=== PATIENT | female | born 1995 | race Two or more races ===

== ENCOUNTER 2021-02-20 22:15 | Inpatient (IN) | payer OTHER, MEDICAID ==
[~2021-02-20] VITALS: Ht 149.9 cm; Wt 64.0 kg
[2021-02-20] MEDS ORDERED: PNV1TABL76 PO (22:43)
[2021-02-20] MEDS ORDERED: DEXT 5%/LR + PITOCIN 20UNITS/L 1,000 ML IV SCH (23:30)
[2021-02-20] MEDS ORDERED: BUTORPHANOL TARTRATE 2 MG/ML VIAL IV PRN (23:30)
[2021-02-20] MEDS ORDERED: LIDOCAINE HCL 1% 20ML VIAL (Pyxis) INJ INFIL SCH (23:30)
[2021-02-20] MEDS ORDERED: NALOXONE HCL 0.4 MG/ML 1ML VIAL IM PRN (23:30)
[2021-02-20] MEDS ORDERED: METHYLERGONOVINE MALEATE 0.2 MG/ML IM PRN (23:30)
[2021-02-21] MEDS ORDERED: AMPICILLIN 2GM in NS 100ML 100 ML IV SCH
[2021-02-21 00:28] LABS: CLARITY URINE TURBID (CLEAR); COLOR URINE YELLOW (YELLOW); KETONES URINE TRACE (NEGATIVE); LEUKOCYTE ESTERASE URINE 3+ (NEGATIVE); NITRITE URINE POSITIVE (NEGATIVE); OCCULT BLOOD URINE 2+ (NEGATIVE); PH URINE 5.5 (4.5-8.0); PROTEIN URINE 1+ (NEGATIVE); SPECIFIC GRAVITY URINE 1.017 (1.005-1.030)
[2021-02-21 00:28] LABS: BASOPHILS % 0.7 % (0.0-2.0); EOSINOPHILS % 0.4 % (0.0-5.0); HEMATOCRIT. 35.9 % (36.0-48.0); HEMOGLOBIN. 12.5 g/dL (12.0-16.0); LYMPHOCYTES % 42.4 % (20.0-50.0); MEAN CORPUSCULAR HEMOGLOBIN 28.6 pg (28.0-32.0); MEAN CORPUSCULAR VOLUME 82.2 fL (81.0-99.0); MEAN PLATELET VOLUME 10.6 fl (7.4-10.4); MONOCYTES % 2.8 % (2.0-8.0); NEUTROPHILS % 53.7 % (40.0-76.0); PLATELET 202 x1000/uL (130-400); RED BLOOD CELL COUNT 4.37 mill/uL (4.2-5.4); RED CELL DISTRIBUTION WIDTH 12.8 % (11.6-14.6)
[2021-02-21 00:33] LABS: PARTIAL THROMBOPLASTIN TIME 32.2 sec (23.4-31.0); PROTHROMBIN TIME 10.3 sec (9.6-11.0)
[2021-02-21 00:38] LABS: *BARBITURATES SCREEN URINE NEGATIVE (NEGATIVE)
[2021-02-21 00:39] LABS: *AMPHETAMINES SCREEN URINE NEGATIVE (NEGATIVE); *BENZODIAZEPINES SCREEN URINE NEGATIVE (NEGATIVE); *COCAINE SCREEN URINE NEGATIVE (NEGATIVE); CANNABINOID URINE SCREEN NEGATIVE (NEGATIVE); METHADONE URINE SCREEN NEGATIVE (NEGATIVE); OPIATES URINE SCREEN NEGATIVE (NEGATIVE); PHENCYCLIDINE URINE SCREEN NEGATIVE (NEGATIVE)
[2021-02-21 00:50] LABS: CHLORIDE 103 mEq/L (98-107)
[2021-02-21 01:35] LABS: HEPATITIS B SURFACE ANTIGEN NEGATIVE
[2021-02-21] MEDS ORDERED: ROPIVACAINE HCL/PF EPIDURAL 200 ML EPI ONE (02:12)
[2021-02-21] MEDS ORDERED: FENTANYL CITRATE/PF 50MCG/ML 2ML VIAL ONE (02:12)
[2021-02-21] MEDS ORDERED: BUPIVACAINE HCL/PF 0.25% (2.5MG/ML) 10ML ONE (02:14)
[2021-02-21] MEDS: LACTATED RINGERS 1,000 ML IV SCH ×2 (03:18)
[2021-02-21] MEDS ORDERED: AMPICILLIN 1,000 MG in SODIUM CHLORIDE 0.9% 50 ML IV SCH (06:00)
[2021-02-21] MEDS ORDERED: DEXT 5%/LR + PITOCIN 20UNITS/L 1,000 ML IV SCH (07:15)
[2021-02-21] MEDS ORDERED: BENZOCAINE/LANOLIN/ALOE VERA SPRAY TOP PRN (07:15)
[2021-02-21] MEDS ORDERED: RHO(D) IMMUNE GLOBULIN 300 MCG/SYR IM PRN (07:15)
[2021-02-21] MEDS ORDERED: IBUPROFEN 400MG TABLET PO PRN (07:15)
[2021-02-21] MEDS ORDERED: IBUPROFEN 800MG TABLET PO PRN (07:15)
[2021-02-21 09:20] VITALS: BP 130/80
[2021-02-21 13:00] VITALS: BP 117/74
[2021-02-21] MEDS: PRENATAL VIT/FE FUMARATE/FA TABLET PO SCH (14:04)
[2021-02-21 16:45] VITALS: BP 115/79
[2021-02-21 19:30] VITALS: BP 115/85
[2021-02-22] MEDS ORDERED: TETANUS, DIPHTHERIA, PERTUSSIS VAC/PF 0.5ML (>7YR OLD) IM ONE (01:00)
[2021-02-22 04:00] VITALS: BP 94/61
[2021-02-22 07:30] VITALS: BP 106/64
[2021-02-22] MEDS ORDERED: FERROUS SULFATE 325MG TABLET PO SCH (07:30)
[2021-02-22] MEDS ORDERED: IBUP-2030 PO (07:44)
[2021-02-22] MEDS: PRENATAL VIT/FE FUMARATE/FA TABLET PO SCH (07:54)
[2021-02-22 13:07] LABS: HEMATOCRIT. 30.7 % (36.0-48.0); HEMOGLOBIN. 10.5 g/dL (12.0-16.0); MEAN CORPUSCULAR HEMOGLOBIN 28.3 pg (28.0-32.0); MEAN PLATELET VOLUME 9.6 fl (7.4-10.4); PLATELET 182 x1000/uL (130-400); RED CELL DISTRIBUTION WIDTH 13.2 % (11.6-14.6)
[2021-02-22 14:33] LABS: PLATELET ESTIMATE NORMAL
== END 2021-02-22 16:35 | disposition home or self-care (01) | DRG 560 ==
LOC: OBSVTOIN 22:15 → 8 EST LDRP 22:15 → 8EST 02-21 09:20
PROVIDERS: ADMIT Obstetrics & Gynecology; ATTEND Obstetrics & Gynecology
PROC: 10E0XZZ Delivery of Products of Conception, External Approach (ICD-10-PCS; principal; 2021-02-21)
PROC: 0HQ9XZZ Repair Perineum Skin, External Approach (ICD-10-PCS; 2021-02-21)
PROC: 3E0R3BZ Introduction of Anesthetic Agent into Spinal Canal, Percutaneous Approach (ICD-10-PCS; 2021-02-21)
PROC: 00HU33Z Insertion of Infusion Device into Spinal Canal, Percutaneous Approach (ICD-10-PCS; 2021-02-21)
DX: O24.420 Gestational diabetes mellitus in childbirth, diet controlled (principal); Z37.0 Single live birth; O23.13 Infections of bladder in pregnancy, third trimester; O70.0 First degree perineal laceration during delivery; Z3A.38 38 weeks gestation of pregnancy; Z83.3 Family history of diabetes mellitus; Z20.822 Contact with and (suspected) exposure to COVID-19
CPT/HCPCS: 36415; 80053; 80305; 81003; 82962; 85025; 86592; 86703; 86762; 86850; 86900; 87077; 87186; 87340; 87426; 90715; J0290; J0595; J2590; J2795; J3010; J3490; J7120; A4315